=== PATIENT | male | born 1990 | race Two or more races ===

== ENCOUNTER 2022-06-27 02:32 | Emergency (ER) | payer OTHER ==
[~2022-06-27] VITALS: Ht 172.7 cm; Wt 86.6 kg
[2022-06-27] MEDS ORDERED: PIPERACILLIN /TAZOBACTAM 3.375 G VIAL IV ONE (02:46)
[2022-06-27] MEDS ORDERED: VANCOMYCIN 1 GM VIAL ONE (02:46)
--- NOTE | 2022-06-27 02:48 | NUR ---
PT BROUGHT [facility]ULANCE FROM [facility], WITH CHIEF COMPLAINT OF SEIZURE EPISODE , ST AND FERBILE. RECEIVED TRACH PATIENT A/OX1. NOT IN ACUTE RESPIRATORY DISTRESS. HOOKED TO THE MONITOR AND WILL CONTINUE TO ASSESS. AWAITING MD GARCIA.
[2022-06-27] MEDS ORDERED: VANCOMYCIN 1 GM in IV D5W 250 ML IV ONE (03:00)
[2022-06-27] MEDS ORDERED: IV NS 0.9% 1,000 ML BAG IV ONE (03:00)
[2022-06-27] MEDS ORDERED: PIPERACILLIN /TAZOBACTAM 3.375 G in IV D5W 50 ML IV ONE (03:00)
[2022-06-27 03:57] LABS: BASOPHILS # (AUTO) 0.1 K/uL (0.0-0.2); BASOPHILS % (AUTO) 0.5 % (0.0-2.0); EOSINOPHILS % (AUTO) 7.1 % (0.0-6.0); HEMATOCRIT 29 % (39-51); HEMOGLOBIN 9.6 g/dL (13.5-17.5); LYMPHOCYTES # (AUTO) 1.7 K/uL (0.8-4.8); LYMPHOCYTES % (AUTO) 13.3 % (20.0-44.0); MEAN CORPUSCULAR HGB CONC 34 g/dl (31.0-36.0); MEAN CORPUSCULAR VOLUME 96 fL (80-96); MONOCYTES # (AUTO) 0.8 K/uL (0.1-1.30); MONOCYTES % (AUTO) 6.5 % (2.0-12.0); NEUTROPHILS # (AUTO) 9.3 K/uL (1.8-8.9); NEUTROPHILS % (AUTO) 72.6 % (43.0-81.0); PLATELET COUNT (AUTO) 149 K/uL (150-450); RED BLOOD CELL COUNT(AUTO) 2.99 MIL/uL (4.5-6.0); WHITE BLOOD COUNT (AUTO) 12.9 K/uL (4.3-11.0)
[2022-06-27 04:09] LABS: ALANINE AMINOTRANSFERASE 58 U/L (12-78); ALBUMIN 3.9 g/dL (3.4-5.0); ALKALINE PHOSPHATASE 102 U/L (46-116); ASPARTATE AMINOTRANSFERASE 21 U/L (15-37); BILIRUBIN,DIRECT 0.1 mg/dL (0.0-0.2); BILIRUBIN,TOTAL 0.4 mg/dL (0.2-1.0); CALCIUM, SERUM 10.1 mg/dL (8.5-10.1); CARBON DIOXIDE 24 mmol/L (21-32); CHLORIDE 103 mmol/L (98-107); CREATININE 1.8 mg/dL (0.6-1.3); GLUCOSE 126 mg/dL (74-106); POTASSIUM 4.8 mmol/L (3.5-5.1); SODIUM SERUM 137 mmol/L (136-145); TOTAL PROTEIN, SERUM 7.9 g/dL (6.4-8.2); UREA NITROGEN, BLOOD 39 mg/dL (7-18)
--- NOTE | 2022-06-27 05:00 | NUR ---
NEW IV ACCESS SECURED ON L HAND#22, INTACT AND FLUSHING WELL.
--- NOTE | 2022-06-27 05:15 | NUR ---
PATIENT SENT TO RADIOLOGY FOR CT
--- NOTE | 2022-06-27 05:26 | NUR ---
CAME BACK FROM CT DEPT
--- NOTE | 2022-06-27 05:50 | NUR ---
EPIC PANEL PAGED
[2022-06-27 05:59] LABS: BILIRUBIN,URINE NEGATIVE (NEGATIVE); COLOR,URINE YELLOW (YELLOW); LEUKOCYTE ESTERASE ,URINE NEGATIVE (NEGATIVE); NITRITE, URINE NEGATIVE (NEGATIVE); PROTEIN,URINE NEGATIVE (NEGATIVE); UGLUCOSE NEGATIVE (NEGATIVE); UROBILINOGEN,URINE 0.2 EU/dL (0.2)
[2022-06-27] MEDS ORDERED: LEVETIRACETAM (500MG) 500 MG in IV NS 0.9% 100 ML IV SCH (06:30)
--- NOTE | 2022-06-27 06:39 | NUR ---
ADDENDUM: Intravenous End Time Documentation: Keppra 500 mg (in 100 cc NS) IVPB: start time: 638 ; end time: 708: IV site: PIV # 20 Port # 1
--- NOTE | 2022-06-27 07:06 | NUR ---
COVID SWAB DONE AND SENT TO LAB
--- NOTE | 2022-06-27 07:50 | NUR ---
COVID SWAB OBTAINED AND PLACED IN BOX
--- NOTE | 2022-06-27 08:32 | NUR ---
CALLED [facility] [phone] LEFT VM
--- NOTE | 2022-06-27 09:04 | NUR ---
CALLED [facility] [phone] LEFT VM TO CALL US BACK. SECOND CALL
--- NOTE | 2022-06-27 09:11 | NUR ---
NAYE [phone] REQUESTING CLINICALS FAXED TO [phone] AND DOING PEER TO PEER AFTERWARDS.
--- NOTE | 2022-06-27 09:32 | NUR ---
DR. LUGO FROM [facility] SPEAKING WITH DR. GUTIERREZ.
--- NOTE | 2022-06-27 09:37 | NUR ---
CALLED [facility] AND PLACED ON WILL CALL WITH BREE.
--- NOTE | 2022-06-27 10:15 | NUR ---
SHANE DIAZ [phone] REQUESTING COVID RESULT FAXED TO [phone]
--- NOTE | 2022-06-27 10:24 | NUR ---
NAYE GIVING AUTH #[id number] TO [phone]
--- NOTE | 2022-06-27 10:45 | NUR ---
PER SHANE PT GOING TO [facility] ER UNDER DR. LUZ. PLEASE CALL [phone] FOR REPORT.
--- NOTE | 2022-06-27 11:04 | NUR ---
REPORT GIVEN TO REHANA PATEL
--- NOTE | 2022-06-27 11:09 | NUR ---
CALLED [facility] NOTFIED PATIENT IS READY FOR TRANSPORT. Addendum: 06/27/22 at 1110 by MARISA [facility] STATED TRANSPORT WOULD ARRIVE IN 45MINS TO AN HOUR FOR GEOTECHNICIAN.
--- NOTE | 2022-06-27 11:42 | NUR ---
[facility] AT BED SIDE FOR TECH ED/[employer] TEACHER
[2022-06-27 11:58] VITALS: BP 121/61
== END 2022-06-27 11:58 | disposition short-term general hospital (02) ==
LOC: ER 02:33
DX: A41.9 Sepsis, unspecified organism (principal); G91.9 Hydrocephalus, unspecified; R50.9 Fever, unspecified; R94.31 Abnormal electrocardiogram [ECG] [EKG]; Z20.822 Contact with and (suspected) exposure to COVID-19
CPT/HCPCS: 99291; 96365; 70450; 71045; 96367; 87426; 96368; 93005; 84145; 85025; 80048; 87040 ×2; 87086; 83605; 80076; 81003; 36415; 84484; 85730; 87081; J3370; J2543 ×2; J7060; J7030 ×2; J7050; A4223; J1953; C9803

== ENCOUNTER 2022-08-17 15:58 | Inpatient (IN) | payer OTHER ==
[~2022-08-17] VITALS: Ht 177.8 cm; Wt 94.3 kg
--- NOTE | 2022-08-17 16:20 | NUR ---
TARYN PENALOZA FROM [facility] FOR G-TUBE REPLACEMENT,G-TUBE DISLODGED 3 DAYS AGO.
--- NOTE | 2022-08-17 16:50 | NUR ---
ROTARY SCREEN PRINTING MACHINE OPERATOR AT BEDSIDE
[2022-08-17] MEDS ORDERED: BISA10SU11 RC (16:54)
[2022-08-17] MEDS ORDERED: ZINC50TA69 GT (16:54)
[2022-08-17] MEDS ORDERED: NA P133E RC (16:54)
[2022-08-17] MEDS ORDERED: CHLO473M5 MM (16:54)
[2022-08-17] MEDS ORDERED: LACT1CAP69 GT (16:54)
[2022-08-17] MEDS ORDERED: ACET-2605 GT (16:54)
[2022-08-17] MEDS ORDERED: IPRA4AER IH ×2 (16:54)
[2022-08-17] MEDS ORDERED: LEVE500S9 GT (16:54)
[2022-08-17] MEDS ORDERED: CARB15DR EACHEYE (16:54)
[2022-08-17] MEDS ORDERED: HYDR-4209 GT (16:54)
[2022-08-17] MEDS ORDERED: ARGI1POW13 GT (16:54)
[2022-08-17] MEDS ORDERED: MAGN400O6 GT (16:54)
[2022-08-17] MEDS ORDERED: DOCU-141 GT (16:54)
[2022-08-17] MEDS ORDERED: ACET-868 GT (16:54)
[2022-08-17] MEDS ORDERED: MULT-447 GT (16:54)
[2022-08-17] MEDS ORDERED: FURO40TA5 GT (16:54)
[2022-08-17] MEDS ORDERED: INSU100V28 SQ (16:54)
[2022-08-17] MEDS ORDERED: AMIN30LI2 GT (16:54)
[2022-08-17] MEDS ORDERED: CHOL100043 GT (16:54)
--- NOTE | 2022-08-17 17:00 | NUR ---
COVID TEST COLLECTED AND SENT
[2022-08-17 17:20] LABS: BASOPHILS % (AUTO) 0.5 % (0.0-2.0); EOSINOPHILS % (AUTO) 3.6 % (0.0-6.0); HEMATOCRIT 36 % (39-51); LYMPHOCYTES # (AUTO) 2.3 K/uL (0.8-4.8); LYMPHOCYTES % (AUTO) 21.1 % (20.0-44.0); MEAN CORPUSCULAR HGB CONC 33 g/dl (31.0-36.0); MEAN CORPUSCULAR VOLUME 93 fL (80-96); MONOCYTES # (AUTO) 0.6 K/uL (0.1-1.30); MONOCYTES % (AUTO) 5.8 % (2.0-12.0); NEUTROPHILS # (AUTO) 7.4 K/uL (1.8-8.9); PLATELET COUNT (AUTO) 186 K/uL (150-450); RED BLOOD CELL COUNT(AUTO) 3.86 MIL/uL (4.5-6.0); WHITE BLOOD COUNT (AUTO) 10.8 K/uL (4.3-11.0)
--- NOTE | 2022-08-17 17:36 | NUR ---
IV ESTABLISHED L HAND 20G
[2022-08-17 18:22] LABS: CALCIUM, SERUM 9.3 mg/dL (8.5-10.1); CREATININE 0.8 mg/dL (0.6-1.3); POTASSIUM 4.1 mmol/L (3.5-5.1)
[2022-08-17 18:26] LABS: ALBUMIN 3.8 g/dL (3.4-5.0); BILIRUBIN,TOTAL 0.3 mg/dL (0.2-1.0); TOTAL PROTEIN, SERUM 7.6 g/dL (6.4-8.2)
[2022-08-17 20:17] VITALS: BP 135/87
--- NOTE | 2022-08-17 20:25 | NUR ---
REPORT GIVEN TO BARBIE Duran RN FOR G[facility]
[2022-08-17] MEDS ORDERED: IV NS 0.9% 1,000 ML IV SCH (20:30)
[2022-08-17] MEDS ORDERED: MORPHINE SULFATE INJ 2 MG/ML DISP.SYRIN IV PRN (20:30)
[2022-08-17] MEDS ORDERED: hydrALAZINE HCL IV 20 MG VIAL IV PRN (20:30)
[2022-08-17] MEDS ORDERED: ONDANSETRON HCL/PF 4 MG/2 ML VIAL IVP PRN (20:30)
[2022-08-17] MEDS ORDERED: ACETAMINOPHEN 325 MG TABLET PO PRN ×2 (20:30→23:30)
--- NOTE | 2022-08-17 20:48 | NUR ---
PT TRANSFERRING TO [facility] VIA HOSPITAL PROTOCOL.
[2022-08-17] MEDS ORDERED: ACETAMINOPHEN ES 500 MG TABLET GT PRN (23:30)
[2022-08-17] MEDS ORDERED: DEXTROSE 50%-WATER 50 ML DISP.SYRIN IV PRN (23:30)
[2022-08-17] MEDS ORDERED: BISACODYL SUPP (10 MG) 10 MG/SUPP.RECT SUPP.RECT RC PRN (23:30)
[2022-08-17] MEDS ORDERED: HYDROCODONE/APAP 5/325MG TABLET GT PRN (23:30)
[2022-08-17] MEDS ORDERED: Medication Not On Formulary EA (Ipratropium/Albuterol Sulfate (Combivent Respimat 20-100 IH PRN (23:30)
[2022-08-17] MEDS ORDERED: ALBUTEROL FS 2.5 MG/0.5 ML VIAL.NEB NEB PRN (23:45)
[2022-08-17] MEDS ORDERED: IPRATROPIUM NEB FS 0.5 MG/2.5 ML AMPUL.NEB IH PRN (23:45)
--- NOTE | 2022-08-17 23:49 | NUR ---
MS/TELE/RN RECEIVED PATIENT FRO E.R. AT AROUND 20:50 VIA PieceableRNEY. PATIENT WAS AWAKE, ALERT, ORIENTED X1, NO C/O PAIN, NO SIGNS OF DISTRESS NOTED. PATIENT HAS TRACH CLAMPED WIT, POSSIBLY PASSIMUIR. UNABLE TO OBTAIN ADMISSION HISTORY PATIENT IS NOTA GOOD HISTORIAN, NOT ABLE TO ANSWER TO QUESTIONS. PHYSICAL ASSESSMENT WAS DONE, PHOTOS TAKEN ON SKIN PROBLEMS, NURSING CARE DONE, REPOSITIONED TO COMFORT, FALL PRECAUTIONS PER HOSPITAL PROTOCOL IMPLEMENTED, TAUGHT THE USE OF CALL LIGHT AND PLACED IT AT BEDSIDE WITHIN REACH, WILL MONITOR.
[2022-08-17] MEDS: BLOOD SUGAR DIAGNOSTIC 1 EACH STRIP IN SCH (23:55)
[2022-08-18] MEDS ORDERED: Medication Not On Formulary EA (Ipratropium/Albuterol Sulfate (Combivent Respimat 20-100 IH SCH
--- NOTE | 2022-08-18 01:30 | NUR ---
MS/TELE/RN PATIENT WAS SLEEPING, NO SIGNS OF DISTRESS NOTED, CALL LIGHT IN REACH, WILL CONTINUE TO MONITOR.
[2022-08-18] MEDS: IPRATROPIUM NEB FS 0.5 MG/2.5 ML AMPUL.NEB IH SCH ×4 (02:50→20:05)
[2022-08-18] MEDS: ALBUTEROL FS 2.5 MG/0.5 ML VIAL.NEB NEB SCH ×4 (02:50→20:05)
[2022-08-18] MEDS: BLOOD SUGAR DIAGNOSTIC 1 EACH STRIP IN SCH ×4 (06:03→22:39)
--- NOTE | 2022-08-18 06:04 | NUR ---
MS/TELE/RN PATIENT IS AWAKE, COMFORTABLE, MORNING CARE WAS DONE, NO CHANGE IN CONDITION, ALL NEEDS ATTENDED AT THIS TIME, WILL CONTINUE TO MONITOR.
--- NOTE | 2022-08-18 07:33 | NUR ---
MS RN OPENING NOTE RECEIVED PATIENT AWAKE IN BED, A/O X1. WITH PORTEX #7 WITH SPEAKING VALVE ON ROOM AIR, BREATHING EVEN AND UNLABORED. NO S/S OF DISTRESS NOTED. NO PAIN NOTED AT THIS TIME. WITH IV ACCESS AT LEFT HAND G#20 WITH RUNNING NS AT 75 ML/HOUR INFUSING WELL. SAFETY MEASURES IMPLEMENTED, BED LOCKED IN LOWEST POSITION, SIDE RAILS UP X 2, CALL LIGHT AND TABLE WITHIN REACH; WILL CONTINUE TO MONITOR PATIENT THROUGHOUT SHIFT.
--- NOTE | 2022-08-18 07:38 | NUR ---
WOUND CARE CONSULT: PT PRESENTS WITH SCARRING AND DISCOLORATION TO BILATERAL HEELS AND SCARRING TO SACRUM, PRESENT ON ADMISSION. DPM CONSULT CALLED TO DR MARTINS. DISCUSSED SKIN PROTECTION WITH NURSING STAFF. PT IS INCONTINENT. PT IS ON [place] IS[place]LEX LOW AIRLOSS BED. MD IN AGREEMENT WITH PLAN OF CARE.
[2022-08-18] MEDS ORDERED: Z GUARD REMEDY 4 OZ OINT TP PRN (08:00)
[2022-08-18] MEDS: LACTOBACILLUS RHAMNOSUS GG 1 EACH CAP.SPRINK GT SCH (09:00)
[2022-08-18] MEDS: FUROSEMIDE 40 MG TABLET GT SCH (09:00)
[2022-08-18] MEDS: LEVETIRACETAM SOL (5 ML) 100 MG/ML UDC GT SCH ×2 (09:00→21:00)
[2022-08-18] MEDS: DOCUSATE SODIUM 100 MG CAPSULE PO SCH (09:00)
[2022-08-18] MEDS: ZINC SULFATE 220 MG CAPSULE GT SCH (09:00)
[2022-08-18] MEDS: PROSTAT (PYXIS) 30 ML UDC GT SCH (09:00)
[2022-08-18] MEDS: CHOLECALCIFEROL 1,000 UNIT TABLET (VIT D3) GT SCH (09:00)
[2022-08-18] MEDS: MULTIVITAMINS,THERAGRAN 1 UDTAB TABLET GT SCH (09:00)
[2022-08-18] MEDS ORDERED: IV D5W 1,000 ML IV PRN (09:30)
[2022-08-18] MEDS: CHLORHEXIDINE GLUCONATE 15 ML UDC MM SCH ×2 (09:39→22:35)
[2022-08-18] MEDS: POLYVINYL ALCOHOL 15 ML BOTTLE EACHEYE SCH ×4 (09:39→22:32)
[2022-08-18] MEDS: Z GUARD REMEDY 4 OZ OINT TP SCH (09:40)
--- NOTE | 2022-08-18 09:57 | NUR ---
RN NOTE PATIENT G-TUBE DISLODGED AT FACILITY. PATIENT IS ON NPO. GT MEDICATIONS HELD, AWAITING FOR GI CONSULT. PATIENT'S NS WAS CHANGED TO D5 AT 75 ML/HOUR. AND CHARGE NURSE AWARE
[2022-08-18 10:02] VITALS: BP 130/81
[2022-08-18] MEDS: IV D5/ 0.9% NACL 1,000 ML IV PRN (11:42)
[2022-08-18 14:12] LABS: BASOPHILS % (AUTO) 0.4 % (0.0-2.0); EOSINOPHILS % (AUTO) 2.4 % (0.0-6.0); HEMATOCRIT 35 % (39-51); HEMOGLOBIN 11.8 g/dL (13.5-17.5); LYMPHOCYTES % (AUTO) 23.5 % (20.0-44.0); MEAN CORPUSCULAR HGB CONC 34 g/dl (31.0-36.0); MEAN CORPUSCULAR VOLUME 92 fL (80-96); MONOCYTES # (AUTO) 0.5 K/uL (0.1-1.30); MONOCYTES % (AUTO) 5.2 % (2.0-12.0); NEUTROPHILS # (AUTO) 5.9 K/uL (1.8-8.9); NEUTROPHILS % (AUTO) 68.5 % (43.0-81.0); PLATELET COUNT (AUTO) 158 K/uL (150-450); RED BLOOD CELL COUNT(AUTO) 3.75 MIL/uL (4.5-6.0); WHITE BLOOD COUNT (AUTO) 8.7 K/uL (4.3-11.0)
[2022-08-18 14:30] LABS: ALBUMIN 3.9 g/dL (3.4-5.0); BILIRUBIN,TOTAL 0.4 mg/dL (0.2-1.0); CALCIUM, SERUM 9.6 mg/dL (8.5-10.1); CREATININE 0.7 mg/dL (0.6-1.3); MAGNESIUM 2.1 mg/dL (1.8-2.4); PHOSPHORUS 3.4 mg/dL (2.5-4.9); POTASSIUM 4.1 mmol/L (3.5-5.1); TOTAL PROTEIN, SERUM 7.6 g/dL (6.4-8.2)
[2022-08-18 16:00] VITALS: BP 120/83
[2022-08-18] MEDS: ARGININE/GLUTAMINE/CALCIUM BMB 1 EACH POWD.PACK GT SCH (17:00)
--- NOTE | 2022-08-18 19:28 | NUR ---
MS RN CLOSING NOTE PATIENT AWAKE IN BED A/O X1. WITH TRACHESOTOMY PORTEX 7, ON ROOM AIR, NO S/S OF DISTRESS AND NO SOB NOTED. PATIENT HAS IV AT LEFT HAND WITH D5NS AT 75 ML/HOUR, INFUSING WELL. KEPT PATIENT ON NPO AT ALL TIMES. ALL NEEDS ATTENDED AND ANTICIPATED. FALL AND SAFETY PRECAUTION IN PLACE: BED LOCKED AND AT THE LOWEST POSITION, SIDE RAILS UP X2, CALL LIGHT WITHIN REACH. WILL ENDORSE TO LIQUOR GALLERY OPERATOR NURSE.
[2022-08-18 20:00] VITALS: BP 129/85
[2022-08-18] MEDS: INSULIN REGULAR, HUMAN 100 UNIT/ML 3 ML VIAL SQ PRN (22:39)
--- NOTE | 2022-08-18 22:58 | NUR ---
MOONER Opening Note Pt in bed, awake, A/O x1, has trachesotomy portex 7, on RA. IV access at Left hand infusing D5 NS at 75ml/h. NPO. Safety measures in place, bed low, bed locked, side rails up x2, call light at reach. Will cont to monitor pt.
[2022-08-19] MEDS: IV D5/ 0.9% NACL 1,000 ML IV PRN ×2 (01:33→21:25)
[2022-08-19] MEDS: IPRATROPIUM NEB FS 0.5 MG/2.5 ML AMPUL.NEB IH SCH ×4 (02:23→20:40)
[2022-08-19] MEDS: ALBUTEROL FS 2.5 MG/0.5 ML VIAL.NEB NEB SCH ×4 (02:23→20:40)
[2022-08-19 06:57] LABS: BASOPHILS % (AUTO) 0.5 % (0.0-2.0); EOSINOPHILS % (AUTO) 2.6 % (0.0-6.0); HEMATOCRIT 37 % (39-51); HEMOGLOBIN 12.2 g/dL (13.5-17.5); LYMPHOCYTES # (AUTO) 1.9 K/uL (0.8-4.8); LYMPHOCYTES % (AUTO) 23.1 % (20.0-44.0); MEAN CORPUSCULAR HGB CONC 33 g/dl (31.0-36.0); MEAN CORPUSCULAR VOLUME 94 fL (80-96); MONOCYTES # (AUTO) 0.5 K/uL (0.1-1.30); MONOCYTES % (AUTO) 6.1 % (2.0-12.0); NEUTROPHILS # (AUTO) 5.5 K/uL (1.8-8.9); NEUTROPHILS % (AUTO) 67.7 % (43.0-81.0); PLATELET COUNT (AUTO) 156 K/uL (150-450); RED BLOOD CELL COUNT(AUTO) 3.94 MIL/uL (4.5-6.0); WHITE BLOOD COUNT (AUTO) 8.2 K/uL (4.3-11.0)
[2022-08-19 07:20] LABS: ALBUMIN 3.7 g/dL (3.4-5.0); BILIRUBIN,TOTAL 0.4 mg/dL (0.2-1.0); CALCIUM, SERUM 9.2 mg/dL (8.5-10.1); CREATININE 0.7 mg/dL (0.6-1.3); MAGNESIUM 1.9 mg/dL (1.8-2.4); PHOSPHORUS 3.3 mg/dL (2.5-4.9); POTASSIUM 3.8 mmol/L (3.5-5.1); TOTAL PROTEIN, SERUM 7.5 g/dL (6.4-8.2)
[2022-08-19] MEDS: BLOOD SUGAR DIAGNOSTIC 1 EACH STRIP IN SCH ×4 (07:33→22:00)
[2022-08-19] MEDS: INSULIN REGULAR, HUMAN 100 UNIT/ML 3 ML VIAL SQ PRN (07:34)
--- NOTE | 2022-08-19 07:43 | NUR ---
CERTIFIED MARINE MECHANIC Closing Note Pt in bed, awake, A/O x1, has trachesotomy portex 7, on RA, no s/s of SOB/distress/pain. IV access at Left hand infusing D5 NS at 75ml/h, in place, paten, no s/s of infiltration/infection. NPO. Safety measures in place, bed low, bed locked, side rails up x2, call light at reach. Endorse to the next shift nurse to cont to monitor pt.
--- NOTE | 2022-08-19 07:50 | NUR ---
ms rn patient on bed, oriented x1, not in any form of distress, on room air w/ adequate saturation, denies pain at this time, came in w/ g tube malfunction, denies pain at this time, for g tube placement this pm, all needs attended.
[2022-08-19] MEDS: POLYVINYL ALCOHOL 15 ML BOTTLE EACHEYE SCH ×4 (09:00→21:44)
[2022-08-19] MEDS: PROSTAT (PYXIS) 30 ML UDC GT SCH (09:00)
[2022-08-19] MEDS: MULTIVITAMINS,THERAGRAN 1 UDTAB TABLET GT SCH (09:00)
[2022-08-19] MEDS: ZINC SULFATE 220 MG CAPSULE GT SCH (09:00)
[2022-08-19] MEDS: DOCUSATE SODIUM 100 MG CAPSULE PO SCH (09:00)
[2022-08-19] MEDS: ARGININE/GLUTAMINE/CALCIUM BMB 1 EACH POWD.PACK GT SCH ×2 (09:00→17:00)
[2022-08-19] MEDS: CHOLECALCIFEROL 1,000 UNIT TABLET (VIT D3) GT SCH (09:00)
[2022-08-19] MEDS: FUROSEMIDE 40 MG TABLET GT SCH (09:00)
[2022-08-19] MEDS: LEVETIRACETAM SOL (5 ML) 100 MG/ML UDC GT SCH ×2 (09:00→21:00)
[2022-08-19] MEDS: LACTOBACILLUS RHAMNOSUS GG 1 EACH CAP.SPRINK GT SCH (09:00)
--- NOTE | 2022-08-19 09:00 | NUR ---
ms rn patient on npo at this time, will wait for speech therapy for eval.
--- NOTE | 2022-08-19 10:50 | NUR ---
ms rn speech eval bone, soft diet is recommended.
[2022-08-19] MEDS: CHLORHEXIDINE GLUCONATE 15 ML UDC MM SCH ×2 (13:54→21:44)
[2022-08-19] MEDS: Z GUARD REMEDY 4 OZ OINT TP SCH (13:54)
--- NOTE | 2022-08-19 18:45 | NUR ---
MS RN PATIENT ON BED, READY FOR OR, CHARGE NURSE IS AWARE.
--- NOTE | 2022-08-19 19:45 | NUR ---
MS RN OPENING NOTES: RECEIVED PATIENT AWAKE IN BED, BED IN LOW POSITION CALL LIGHTS WITHIN REACH NO COMPLAIN OF PAIN AND DISCOMFORT AT THIS TIME, ON ROOM AIR , ON TRACH, IV LINE AT RIGHT HAND#20 WITH ONGOING D5 NS@75ML/HR INFUSING WELL, PATIENT ON NPO, FOR G TUBE INSERTION, PATIENT OB BED REST, CONTRACTED, BLE, PATIENT KEPT CLEAN AND DRY ALL NEEDS MET WILL CONTINUE TO MONITOR.
[2022-08-19 20:00] VITALS: BP 136/82
--- NOTE | 2022-08-19 21:44 | NUR ---
RN NOTES: MEDICATION NOT ADMINISTER PATIENT FOR G-TUBE PLACEMENT.
--- NOTE | 2022-08-19 22:08 | NUR ---
RN NOTES: BLOOD SUGAR-86, PATIENT ON NPO POST MIDNIGHT/ OUT OF PARAMETER
[2022-08-20] MEDS: IPRATROPIUM NEB FS 0.5 MG/2.5 ML AMPUL.NEB IH SCH ×3 (03:12→14:01)
[2022-08-20] MEDS: ALBUTEROL FS 2.5 MG/0.5 ML VIAL.NEB NEB SCH ×3 (03:12→14:01)
--- NOTE | 2022-08-20 06:00 | NUR ---
RN NOTES: PATIENT LEFT FOR G TUBE PLACEMENT AT 0550 ON STABLE CONDITION.
--- NOTE | 2022-08-20 06:00 | NUR ---
RN NOTES: BLOOD SUGAR-78/ NO INSULIN GIVEN
[2022-08-20] MEDS ORDERED: KETAMINE HCL (500MG/10ML) 50 MG/ML VIAL ONE (06:01)
[2022-08-20 06:02] LABS: BASOPHILS % (AUTO) 0.3 % (0.0-2.0); EOSINOPHILS % (AUTO) 1.9 % (0.0-6.0); HEMATOCRIT 35 % (39-51); HEMOGLOBIN 11.4 g/dL (13.5-17.5); LYMPHOCYTES # (AUTO) 2.1 K/uL (0.8-4.8); LYMPHOCYTES % (AUTO) 21.6 % (20.0-44.0); MEAN CORPUSCULAR HGB CONC 33 g/dl (31.0-36.0); MEAN CORPUSCULAR VOLUME 93 fL (80-96); MONOCYTES # (AUTO) 0.7 K/uL (0.1-1.30); NEUTROPHILS # (AUTO) 6.8 K/uL (1.8-8.9); NEUTROPHILS % (AUTO) 69.2 % (43.0-81.0); PLATELET COUNT (AUTO) 162 K/uL (150-450); RED BLOOD CELL COUNT(AUTO) 3.71 MIL/uL (4.5-6.0); WHITE BLOOD COUNT (AUTO) 9.8 K/uL (4.3-11.0)
[2022-08-20 06:23] LABS: ALBUMIN 3.5 g/dL (3.4-5.0); BILIRUBIN,TOTAL 0.4 mg/dL (0.2-1.0); CALCIUM, SERUM 9.1 mg/dL (8.5-10.1); CREATININE 0.6 mg/dL (0.6-1.3); MAGNESIUM 1.8 mg/dL (1.8-2.4); POTASSIUM 3.5 mmol/L (3.5-5.1); TOTAL PROTEIN, SERUM 7.1 g/dL (6.4-8.2)
[2022-08-20] MEDS: BLOOD SUGAR DIAGNOSTIC 1 EACH STRIP IN SCH ×2 (07:30→12:12)
--- NOTE | 2022-08-20 07:39 | NUR ---
MS RN CLOSING NOTES; PATIENT CAME BACK FROM OR AT 0710 FOR G TUBE PLACEMENT VIA GURNEY ON STABLE CONDITION, PLACE COMFORTABLY IN BED, BED IN LOW POSITION CALL LIGHTS WITHIN REACH, NO COMPLAIN OF PAIN AND DISCOMFORT AT THIS TIME, ON ROOM AIR SATURATING WELL, PRESENT WITH G TUBE LINE ON ABDOMINAL BINDER, WITH DOCTORS ORDER OF G TUBE FEEDING TO START NOW, NOTED AND CARRY OUT, PATIENT KEPT CLEAN AND DRY ALL NEEDS MET ENDORSE TO INCOMING SHIFT.
--- NOTE | 2022-08-20 07:45 | NUR ---
MS RN RECEIVED ON BED, AWAKE, NON VERBAL, S/P PEG TUBE PLACEMENT, READY TO USE PER ORDER, NO DISTRESS NOTED, WILL CONTINUE TO MONITOR PATIENT.
[2022-08-20] MEDS ORDERED: GLUCERNA 1.2 1,000 ML BOTTLE NG PRN (08:00)
[2022-08-20] MEDS ORDERED: DOCUSATE SODIUM LIQ 100 MG/10 ML UDC PO SCH (09:00)
--- NOTE | 2022-08-20 10:00 | NUR ---
MR RN STARTED G TUBE FEEDING, GLUCERNA 1.2, STARTED AT 20 ML/HR, TOLERATED WELL WITHOUT RESIDUAL, DUE MEDS GIVEN.
[2022-08-20] MEDS: CHOLECALCIFEROL 1,000 UNIT TABLET (VIT D3) GT SCH (10:21)
[2022-08-20] MEDS: LEVETIRACETAM SOL (5 ML) 100 MG/ML UDC GT SCH (10:22)
[2022-08-20] MEDS: MULTIVITAMINS,THERAGRAN 1 UDTAB TABLET GT SCH (10:22)
[2022-08-20] MEDS: LACTOBACILLUS RHAMNOSUS GG 1 EACH CAP.SPRINK GT SCH (10:22)
[2022-08-20] MEDS: ZINC SULFATE 220 MG CAPSULE GT SCH (10:22)
[2022-08-20] MEDS: CHLORHEXIDINE GLUCONATE 15 ML UDC MM SCH (10:25)
[2022-08-20] MEDS: ARGININE/GLUTAMINE/CALCIUM BMB 1 EACH POWD.PACK GT SCH (10:30)
[2022-08-20] MEDS: PROSTAT (PYXIS) 30 ML UDC GT SCH (10:31)
[2022-08-20] MEDS: Z GUARD REMEDY 4 OZ OINT TP SCH (13:06)
[2022-08-20] MEDS: FUROSEMIDE 40 MG TABLET GT SCH (13:07)
[2022-08-20] MEDS: POLYVINYL ALCOHOL 15 ML BOTTLE EACHEYE SCH ×2 (13:07→13:17)
--- NOTE | 2022-08-20 16:10 | NUR ---
MR RN, PT ON BED NO DISTRESS NOTED, TOLERATED FEEDING WELL, DISCHARGE TO [facility], REPORT GIVEN TO JATINDER PATEL, PICKED UP VIA AMBULANCE, ALL NEEDS ATTENDED.
== END 2022-08-20 16:22 | DRG 254 ==
LOC: ER 16:15 → MED 19:37
PROVIDERS: ADMIT Nurse Practitioner Acute Care; ATTEND Internal Medicine
PROC: 0DH68UZ Insertion of Feeding Device into Stomach, Via Natural or Artificial Opening Endoscopic (ICD-10-PCS; principal; 2022-08-20)
DX: Z43.1 Encounter for attention to gastrostomy (principal); G93.49 Other encephalopathy; I69.254 Hemiplegia and hemiparesis following other nontraumatic intracranial hemorrhage affecting left non-dominant side; Z93.0 Tracheostomy status; G40.909 Epilepsy, unspecified, not intractable, without status epilepticus; R13.10 Dysphagia, unspecified; I69.291 Dysphagia following other nontraumatic intracranial hemorrhage; E11.9 Type 2 diabetes mellitus without complications; I10 Essential (primary) hypertension; K29.70 Gastritis, unspecified, without bleeding; I69.298 Other sequelae of other nontraumatic intracranial hemorrhage; Z22.322 Carrier or suspected carrier of Methicillin resistant Staphylococcus aureus; Z79.4 Long term (current) use of insulin; Z79.899 Other long term (current) drug therapy
CPT/HCPCS: 36415; 43246; 71045-TC; 80048-TC; 80053-TC; 80076-TC; 82962-TC; 83605-TC; 83735-TC; 84100-TC; 85025-TC; 85730-TC; 86850-TC; 87081-TC; 92526; 92611-TC; 94799-TC; A4223; C9803; G0378; J0690; J1815; J1953; J2704; J3490; J7030; J7042; J7070